=== PATIENT | female | born 1980 | race Caucasian/White ===

== ENCOUNTER 2019-04-18 08:15 | Emergency (ER) | payer BC, OTHER ==
[2019-04-18 08:25] VITALS: BP 112/66
--- NOTE | 2019-04-18 09:31 | UC ---
Abdominal Pain Female HPI - HPI Summary HPI Summary: 38-year-old woman comes in with a chief complaint of right lower quadrant abdominal pain. Started this morning when she woke up. It's worse when she moves or presses on the area. She feels like she has to urinate more. She's had back pain all week long in the lower back. She's had some chills in the last couple of days. Nor at no abnormal vaginal discharge. Last period was earlier this month. No prior abdominal surgeries other than tubal ligation. - History of Current Complaint Chief Complaint: UCGU Stated Complaint: BLADDAR ISSUES Time Seen by Provider: 04/18/19 09:17 Hx Last Menstrual Period: 03/02/19 Pain Intensity: 6 Allergies/Adverse Reactions: Allergies Allergy/AdvReac Type Severity Reaction Status Date / Time No Known Allergies Allergy Verified 04/18/19 08:25 PMH/Surg Hx/FS Hx/Imm Hx Previously Healthy: Yes - Surgical History Surgical History: Yes Surgery Procedure, Year, and Place: tonsilectomy. TUBAL LIGATION - Family History Known Family History: Positive: Hypertension - Social History Alcohol Use: Occasionally Substance Use Type: None Smoking Status (MU): Never Smoked Tobacco - Immunization History Most Recent Influenza Vaccination: 2011 Most Recent Tetanus Shot: up to date Review of Systems All Other Systems Reviewed And Are Negative: Yes Constitutional: Positive: Chills Skin: Positive: Negative Eyes: Positive: Negative ENT: Positive: Negative Respiratory: Positive: Negative Cardiovascular: Positive: Negative Gastrointestinal: Positive: Abdominal Pain Genitourinary: Positive: Frequency Motor: Positive: Negative Neurovascular: Positive: Negative Musculoskeletal: Positive: Negative Neurological: Positive: Negative Psychological: Positive: Negative Is Patient Immunocompromised?: No Physical Exam Triage Information Reviewed: Yes Appearance: Well-Appearing, Well-Nourished, Pain Distress - MILD WITH MOVEMENT Vital Signs: Initial Vital Signs Temp 97.8 F 04/18/19 08:20 Pulse 80 04/18/19 08:20 Resp 17 04/18/19 08:20 BP 112/66 04/18/19 08:20 Pulse Ox 100 04/18/19 08:20 Vital Signs Reviewed: Yes Eye Exam: Normal Eyes: Positive: Conjunctiva Clear Neck: Positive: Supple Respiratory: Positive: Lungs clear, Normal breath sounds, No respiratory distress Cardiovascular: Positive: RRR Abdomen Description: Positive: Other: - TENDER TO PALPATION RLQ,POSITIVE HEEL STRIKE AND OBTURATOR SIGN Musculoskeletal Exam: Normal Musculoskeletal: Positive: Strength Intact, ROM Intact Neurological Exam: Normal Neurological: Positive: Alert, Muscle Tone Normal Psychological Exam: Normal Psychological: Positive: Age Appropriate Behavior Skin Exam: Normal Abd Pain Female Course/Dx - Course Course Of Treatment: I RECOMMENDED FURTHER EVALUATION IN THE EMERGENCY DEPARTMENT. PATIENT PREFERS TO GO BY POV - Differential Dx/Diagnosis Provider Diagnosis: Right lower quadrant abdominal pain Discharge - Sign-Out/Discharge Documenting (check all that apply): Patient Departure All imaging exams completed and their final reports reviewed: No Studies - Discharge Plan Condition: Stable Disposition: HOME-RECOMMEND TO ED Referrals: Kelsie Crawford [facility] [Primary Care Provider] - Additional Instructions: GO DIRECTLY TO THE EMERGENCY DEPARTMENT FOR FURTHER EVALUATION FOR YOUR RIGHT LOWER QUADRANT ABDOMINAL PAIN - Billing Disposition and Condition Condition: STABLE Disposition: Home-Recommend to ED
== END 2019-04-18 09:35 | disposition home health service (06) ==
LOC: UCEAST 08:15
DX: R10.31 Right lower quadrant pain (principal); R68.83 Chills (without fever)
CPT/HCPCS: 81003; 84702; 99212; G0463

== ENCOUNTER 2019-04-18 09:59 | Emergency (ER) | payer OTHER ==
--- NOTE | 2019-04-18 10:25 | ED ---
Abdominal Pain/Female - HPI Summary HPI Summary: The patient is a 38 y/o F presenting to [facility] with a chief complaint of throbbing bilateral low back pain for over a week that is now radiating to her RLQ since this morning. She reports that she went to [facility] this morning because she thought she might have a kidney infection because she was having difficulty urinating, but her results showed no signs of infection. The aching pain is currently rated 3/10 in severity because she is at rest, but movement aggravates the pain. She additionally c/o fever and chills. She denies nausea and vomiting. LNMP: beginning of March. Hx of tonsillectomy and tubal ligation. No hx of kidney stones. FHx of HTN in grandparents. Nonsmoker, occasional EtOH, no substance abuse. - History of Current Complaint Chief Complaint: EDAbdPain Stated Complaint: FLANK PAIN PER PT Time Seen by Provider: 04/18/19 10:15 Hx Obtained From: Patient Hx Last Menstrual Period: 03/02/19 Onset/Duration: Lasting Hours - RLQ abd pain, Lasting Days - low back pain, Still Present Timing: Hours Severity Initially: Moderate Severity Currently: Mild Pain Intensity: 3 Pain Scale Used: 0-10 Numeric Location: Discrete At: RLQ Radiates: Yes Radiates to: Back - low Character: Other: - aching abd pain, throbbing back pain Aggravating Factor(s): Movement Alleviating Factor(s): Other: - rest Associated Signs and Symptoms: Positive: Fever, Back Pain - low back, Urinary Symptoms - difficulty urinating, Other: - chills. Negative: Nausea, Vomiting Allergies/Adverse Reactions: Allergies Allergy/AdvReac Type Severity Reaction Status Date / Time No Known Allergies Allergy Verified 04/18/19 10:06 PMH/Surg Hx/FS Hx/Imm Hx Endocrine/Hematology History: Denies: Hx Diabetes Cardiovascular History: Denies: Hx Hypercholesterolemia, Hx Hypertension History: Denies: Hx Kidney Stones Sensory History: Denies: Hx Deafness Opthamlomology History: Reports: Hx Contacts or Glasses EENT History: Denies: Hx Deafness - Surgical History Surgery Procedure, Year, and Place: tonsilectomy. TUBAL LIGATION Infectious Disease History: No Infectious Disease History: Denies: Traveled Outside the [place] in Last 30 Days - Family History Known Family History: Positive: Hypertension Negative: Diabetes - Social History Alcohol Use: Occasionally Hx Substance Use: No Substance Use Type: Reports: None Hx Tobacco Use: No Smoking Status (MU): Never Smoked Tobacco Do You Chew or Dip Tobacco: No Have You Chewed or Dipped Tobacco in the LAST YEAR: No Have You Smoked in the Last Year: No Review of Systems Positive: Fever, Chills Positive: Abdominal Pain - RLQ. Negative: Vomiting, Nausea Positive: other - difficulty urinating Positive: Other - bilateral low back pain All Other Systems Reviewed And Are Negative: Yes Physical Exam - Summary Physical Exam Summary: VITAL SIGNS: Reviewed. GENERAL: Patient is a well-developed and nourished female who is lying comfortable in the stretcher. Patient is not in any acute respiratory distress. HEAD AND FACE: Normocephalic and atraumatic. EYES: PERRLA, EOMI x 2, No injected conjunctiva. EARS: Hearing grossly intact. Ear canals and tympanic membranes are WNL. MOUTH: Oropharynx within normal limits. NECK: Supple, trachea is midline, no adenopathy, no JVD. CHEST: Symmetric, no tenderness at palpation LUNGS: Clear to auscultation bilaterally. No wheezing or crackles. CVS: RRR, S1 and S2 present, no murmurs or gallops appreciated. ABDOMEN: Soft, left costovertebral tenderness. No signs of distention. Positive bowel sounds. No rebound no guarding, and no masses palpated. No abdominal bruit or pulsations. EXTREMITIES: FROM in all major joints, no edema, no cyanosis or clubbing. NEURO: Alert and oriented x 3. No acute neurological deficits. Speech is normal. SKIN: Dry and warm Triage Information Reviewed: Yes Vital Signs On Initial Exam: Initial Vitals Temp Pulse Resp BP Pulse Ox 98.3 F 79 18 125/77 100 04/18/19 10:03 04/18/19 10:03 04/18/19 10:03 04/18/19 10:03 04/18/19 10:03 Vital Signs Reviewed: Yes Diagnostics - Vital Signs Vital Signs Temp Pulse Resp BP Pulse Ox 04/18/19 10:03 98.3 F 79 18 125/77 100 - Laboratory Result Diagrams: 04/18/19 10:50 04/18/19 10:50 Lab Statement: Any lab studies that have been ordered have been reviewed, and results considered in the medical decision making process. - CT Abd/Pel CT CT Interpretation Completed By: Radiologist Summary of CT Findings: 1. Normal appendix documented. 2. Negative for obstructive uropathy. 3. 3.5 cm probable follicular or hemorrhagic cyst of the RIGHT ovary. Consider ultrasound for further characterization. ED physician has reviewed this report. Re-Evaluation - Re-Evaluation First Eval Re-Evaluation Time: 12:05 Change: Improved Comment: The patient states she is feeling better. At this time, she declines further pelvic US or pelvic exam. We discussed discharge home. Abdominal Pain Fem Course/Dx - Course Course Of Treatment: The patient is a 38 y/o F presenting to [facility] with a chief complaint of throbbing bilateral low back pain for over a week that is now radiating to her RLQ since this morning. She reports that she went to [facility] this morning because she thought she might have a kidney infection because she was having difficulty urinating, but her results showed no signs of infection. The aching pain is currently rated 3/10 in severity because she is at rest, but movement aggravates the pain. She additionally c/o fever and chills. She denies nausea and vomiting. LNMP: beginning of March. Hx of tonsillectomy and tubal ligation. No hx of kidney stones. FHx of HTN in grandparents. Nonsmoker, occasional EtOH, no substance abuse. Patient has no past medical history. Patient is not in acute distress but still has left flank tenderness. Blood work without any significant abnormality except for slight anemia with a hemoglobin of 11.3, hematocrit of 34, CRP of 29.8, and beta hCG is negative for . Abdominopelvic CT impression: Normal appendix documented. Negative for obstructive uropathy. 2.5 cm pleural follicular or hemorrhagic cyst in the right ovary. Consider ultrasound for further evaluation. At this time, I reassessed the patient and she reports that she has no pain. She has no tenderness at palpation in the right side of the abdomen or right pelvic area. She declined a pelvic ultrasound or a pelvic exam. Patient will follow-up within [facility] and the primary care physician. She was given a prescription for Naproxen for pain. She was instructed to return to the emergency department if the pain returns, any nausea vomiting, any vaginal bleeding or discharge. Patient understands and agrees. - Diagnoses Provider Diagnoses: Ovarian cyst, Lower abdominal pain Discharge - Sign-Out/Discharge Documenting (check all that apply): Patient Departure - Patient will be discharged home. Patient Received Moderate/Deep Sedation with Procedure: No - Discharge Plan Condition: Improved Disposition: HOME Prescriptions: Naproxen [Naproxen 500 mg tab] 500 mg PO BID #20 tablet Patient Education Materials: Ovarian Cyst (ED) Referrals: Kelsie Crawford, CLINIC NURSE [Primary Care Provider] - 3 Days Additional Instructions: Please take medication as prescribed. FOLLOW UP WITH YOUR [facility] AND PRIMARY CARE PROVIDERS WITHIN ONE WEEK. RETURN TO THE ED FOR ANY WORSENING OR NEW SYMPTOMS. - Billing Disposition and Condition Condition: IMPROVED Disposition: Home - Attestation Statements Document Initiated by Yaaibe: Yes Documenting Scribe: Miya Craft Provider For Whom Sabra is Documenting (Include Credential): Dr. Axel Weathers MD Scribe Attestation: Miya Wyman, scribed for Dr. Axel Weathers MD on 04/18/19 at 2140. Scribe Documentation Reviewed: Yes Provider Attestation: The documentation as recorded by the Miya sandoval accurately reflects the service I personally performed and the decisions made by me, Dr. Axel Weathers MD Status of Scribe Document: Viewed
[2019-04-18 11:13] LABS: ABS Eosinophils 0.1 10^3/ul (0-0.6); ABS Lymphocytes 1.1 10^3/ul (1.0-4.8); ABS Monocytes 0.6 10^3/ul (0-0.8); ABS Neutrophils 4.7 10^3/ul (1.5-7.7); Eosinophil % 0.8 %; Hematocrit 34 % (35-47); Hemoglobin 11.3 g/dL (12.0-16.0); Lymphocyte % 17.1 %; Mean Corpuscular HGB Conc 33 g/dL (31-36); Mean Corpuscular Hemoglobin 28 pg (27-31); Mean Corpuscular Volume 84 fL (80-97); Mean Platelet Volume 8.8 fL (7.4-10.4); Platelet Count 210 10^3/uL (150-450); Red Blood Count 4.05 10^6 /uL (3.70-4.87); Red Cell Distribution Width 13 % (10.5-15); White Blood Count 6.5 10^3/uL (3.5-10.8)
[2019-04-18 11:13] LABS: Urine Appearance Clear; Urine Bilirubin Negative (Negative); Urine Blood Negative (Negative); Urine Color Yellow; Urine Glucose Negative (Negative); Urine Ketones Negative (Negative); Urine Nitrite Negative (Negative); Urine Protein Negative (Negative); Urine Specific Gravity 1.009 (1.010-1.030); Urine Urobilinogen Negative (Negative)
[2019-04-18 11:30] LABS: HCG Pregnancy < 0.60 mIU/mL
[2019-04-18 11:36] LABS: ALT 11 U/L (7-52); AST 13 U/L (13-39); Albumin 3.9 g/dL (3.2-5.2); Albumin/Globulin Ratio 1.4 (1-3); Alkaline Phosphatase 48 U/L (34-104); Anion Gap 6 mmol/L (2-11); BUN/Creatinine Ratio 8.9 (8-20); Blood Urea Nitrogen 5 mg/dL (6-24); C Reactive Protein 29.86 mg/L (<8.01); CO2 Carbon Dioxide 26 mmol/L (22-32); Chloride 105 mmol/L (101-111); EGFR African American 146.6 (>60); EGFR Non-African American 121.2 (>60); Globulin 2.8 g/dL (2-4); Glucose 90 mg/dL (70-100); Sodium 137 mmol/L (135-145); Total Protein 6.7 g/dL (6.4-8.9)
[2019-04-18 12:58] VITALS: BP 111/66
== END 2019-04-18 12:57 | disposition home or self-care (01) ==
LOC: ED 09:59
DX: N83.201 Unspecified ovarian cyst, right side (principal); R10.30 Lower abdominal pain, unspecified
CPT/HCPCS: 36415; 74176; 80053; 81003; 83605; 83690; 84702; 85025; 86140; 99282